=== PATIENT | male | born 1995 | race Caucasian/White ===

== ENCOUNTER 2017-10-14 11:04 | Emergency (ER) | payer SELFPAY | END 2017-10-14 12:32 | disposition home or self-care (01) | LOC: D.ER 11:04 | DX: S05.02XA Injury of conjunctiva and corneal abrasion without foreign body, left eye, initial encounter (principal); X58.XXXA Exposure to other specified factors, initial encounter; Y93.89 Activity, other specified; Y92.89 Other specified places as the place of occurrence of the external cause ==